=== PATIENT | female | born 1990 | race Caucasian/White ===

== ENCOUNTER 2018-07-12 13:09 | Emergency (ER) | payer BC ==
--- NOTE | 2018-07-12 13:14 | PDOC ---
History of Present Illness - General Chief Complaint: Vaginal Bleeding Stated Complaint: VAGINAL SPOTTING Time Seen by Provider: 07/12/18 13:14 - History of Present Illness Initial Comments: 07/12/18 14:13 28 years old no significant past medical history presents to the ED with irregular menses. Patient states she is normally very regular for her menstrual cycle and has been bleeding 2 weeks after her last menses. She took 4 urine test at home 2 of which were indeterminate 2 of which were negative is unclear for status try to call her [facility] and now presents to the ED. No fever no abdominal pain no dizziness lightheadedness. Past History - Past Medical History Allergies/Adverse Reactions: Allergies Allergy/AdvReac Type Severity Reaction Status Date / Time acetaminophen [From Percocet] Allergy Intermediate Itching Verified 07/12/18 13: 12 oxycodone [From Percocet] Allergy Intermediate Itching Verified 07/12/18 13:12 Home Medications: Ambulatory Orders NK [No Known Home Medication] 07/12/18 - Surgical History Abdominal Surgery: Yes ([facility] X 8 YEARS AGO) - Suicide/Smoking/Psychosocial Hx Smoking History: Current every day smoker Number of Cigarettes Smoked Daily: 20 Hx Alcohol Use: No Drug/Substance Use Hx: No Substance Use Type: None Review of Systems - Review of Systems Comments:: 07/12/18 14:14 ROS: A complete review of 10 out of 10 review of systems is taken and is negative apart from what is previously mentioned below and in the HPI. *Physical Exam - Physical Exam Comments: 07/12/18 14:14 Vitals: Triage Vital signs reviewed General Appearance: no acute distress, well nourished well developed, Head: Atraumatic, Cardiac: Regular rate and rhythym, no murmurs, no rubs, no gallops, Lungs: Clear to auscultation bilateral, good air movement bilaterally, Abdomen: Soft, non distended, normal bowel sounds, non tender to palpation Genitourinary: Deferred Extremities: Full range of motion to all extremities, no cyanosis, clubbing, or edema Skin: Warm and dry, no rashes or lesions, no rash, no petechiae Psych: normal mood, normal affect ED Treatment Course - LABORATORY CBC & Chemistry Diagram: 07/12/18 13:28 *DC/Admit/Observation/Transfer Diagnosis at time of Disposition: Elevated serum hCG - Discharge Dispostion Disposition: HOME Condition at time of disposition: Stable Decision to Admit order: No - Referrals Referrals: Sylwia Prado MD [Staff Physician] - - Patient Instructions Additional Instructions: Follow-up with your [facility] on Wednesday. Return to emergency department for any severe abdominal pain heavy bleeding or for any concerns. - Post Discharge Activity Forms/Work/School Notes: Back to Work
[2018-07-12 13:25] VITALS: TEMP 98.6; BMI 38.7
[2018-07-12 13:59] LABS: BASO % 0.5 % (0-2.0); EOS % 1.1 % (0-4.5); HEMATOCRIT 40.8 % (32.4-45.2); HEMOGLOBIN 13.5 GM/dl (10.7-15.3); LYMPH % 19.5 % (8-40); MCHC 33.1 g/dl (32.0-36.0); MEAN CELL VOLUME 87.8 fl (80-96); MEAN PLT VOLUME 11.7 fl (7.5-11.1); MONO % 5.7 % (3.8-10.2); NEUT % 73.2 % (42.8-82.8); PLATELET COUNT 194 K/MM3 (134-434); RBC 4.65 M/mm3 (3.60-5.2); RDW 13.2 % (11.6-15.6); WHITE BLOOD COUNT 8.1 K/mm3 (4.0-10.8)
[2018-07-12 17:19] VITALS: BP 127/70; PULSE 71
[2018-07-12] MEDS ORDERED: RHO(D) IMMUNE GLOBULIN 1,500 UNIT DISP.SYRIN IM ONE (18:11)
== END 2018-07-12 20:28 | disposition home or self-care (01) ==
LOC: FER 13:09
PROC: 3E023GC Introduction of Other Therapeutic Substance into Muscle, Percutaneous Approach (ICD-10-PCS; principal; 2018-07-12)
DX: O02.81 Inappropriate change in quantitative human chorionic gonadotropin (hCG) in early pregnancy (principal); Z98.84 Bariatric surgery status; F17.210 Nicotine dependence, cigarettes, uncomplicated
CPT/HCPCS: 36415; 84702; 85025; 86850; 86900; 86901; 86999; 99282-25; J1561